=== PATIENT | male | born 1945 | race Caucasian/White ===

== ENCOUNTER → 2020-07-06 | Outpatient (CLI) | payer MEDICARE ==
[~2020-07-06] MED LIST: ASPIRIN 81M81 MG/TA2 PO; GLUCOPHAGE850 MG/TAB PO; PERCOCET 325 MG1 TAB PO; PRAVACHOL 20MG20 MG PO; PROTONIX 40MG T40 MG PO; ZESTRIL40 MG PO
== END ==
LOC: COL.RAD 12:57
DX: N18.30 Chronic kidney disease, stage 3 unspecified (principal); N28.1 Cyst of kidney, acquired